=== PATIENT | female | born 1990 | race Caucasian/White ===

== ENCOUNTER 2022-04-15 22:41 | Emergency (ER) | payer OTHER ==
[2022-04-16 01:55] LABS: BASOPHIL 0.5 % (0-2); EOSINOPHIL 2.8 % (0-5); HCT 42.3 % (37.0-47.0); HGB 13.9 g/dl (12.5-16.0); LYMPHOCYTE 31.4 % (15-48); MCHC 32.9 g/dL (32.0-36.0); MCV 94.4 fL (78.0-100.0); MONOCYTE 7.3 % (0-12); MPV 10.5 fL (6.0-9.5); NEUTROPHIL 57.6 % (41-80); NRBC 0; PLT 183 K/uL (150-400); RBC 4.48 M/uL (4.20-5.40); RDW 12.3 % (11.5-14.0); WBC 7.8 K/uL (4.0-10.5)
[2022-04-16 02:13] LABS: ALBUMIN 3.8 g/dL (3.4-5.0); ALKALINE PHOSHATASE 72 U/L (46-116); ALT 13 U/L (14-59); AST 11 U/L (15-37); BILIRUBIN - TOTAL 0.1 mg/dL (0.2-1.0); BUN 12 mg/dL (7-18); BUN/CREAT RATIO (CALC) 16.9 RATIO; CHLORIDE 106 mmol/L (98-107); CO2 (BICARBONATE) 29 mmol/L (21-32); CREATININE 0.71 mg/dL (0.51-0.95); GLOBULIN (CALCULATION) 3.1 g/dL; GLUCOSE 95 mg/dL (74-106); POTASSIUM 4.1 mmol/L (3.5-5.1); TOTAL PROTEIN 6.9 g/dL (6.4-8.2)
[2022-04-16 02:56] LABS: CORONAVIRUS 2019 SARS-COV-2 NEGATIVE (NEGATIVE); INFLUENZA A NAA NEGATIVE (NEGATIVE)
== END 2022-04-16 02:30 | disposition home or self-care (01) ==
LOC: FER 22:41
PROVIDERS: Emergency Medicine
DX: R07.89 Other chest pain (principal); I10 Essential (primary) hypertension; F17.200 Nicotine dependence, unspecified, uncomplicated; Z28.310 Unvaccinated for COVID-19; Z20.822 Contact with and (suspected) exposure to COVID-19
CPT/HCPCS: 36415; 71045; 80053; 84484; 85025; 93005; U0002